=== PATIENT | male | born 1975 | race Caucasian/White ===

== ENCOUNTER 2019-05-31 12:50 | Emergency (ER) | payer BC, OTHER, SELFPAY ==
--- NOTE | 2019-05-31 13:47 | RAD ---
RIGHT FOURTH FINGER 3 VIEWS: Date: 05/31/2019 HISTORY: Crush injury. FINDINGS: Comminuted avulsion injury of the distal fourth finger with extensive soft tissue injury, as well as comminuted fracture of the distal tuft of the distal phalanx with a vertical fracture extending into the mid portion of the distal phalanx. IMPRESSION: Avulsion type soft tissue and bony injury to the distal fourth finger with some displaced small bony fragments. At least one vertical component of the fracture extends into the mid aspect of the distal phalanx. POS: [facility]
[2019-05-31] MEDS ORDERED: Lidocaine 2% PF 5 ML VIAL ONE (14:54)
[2019-05-31] MEDS ORDERED: Bupivacaine 0.5% 10 ML VIAL ONE (14:54)
[2019-05-31] MEDS ORDERED: Bacitracin 1 PK ONE (16:26)
[2019-05-31] MEDS ORDERED: CEFAZOLIN 1 GM VIAL ONE (16:39)
[2019-05-31] MEDS ORDERED: Sterile Water 10 ML ONE (16:41)
== END 2019-05-31 17:15 | disposition home or self-care (01) ==
LOC: ERS 12:50
DX: S62.634B Displaced fracture of distal phalanx of right ring finger, initial encounter for open fracture (principal); F17.220 Nicotine dependence, chewing tobacco, uncomplicated; W23.0XXA Caught, crushed, jammed, or pinched between moving objects, initial encounter
CPT/HCPCS: 64450; 96372; J0690; J2001; J3490

== ENCOUNTER 2019-06-02 14:44 | Emergency (ER) | payer BC ==
[2019-06-02] MEDS ORDERED: Ketorolac Tromethamine 60 MG/2 ML VIAL ONE (15:46)
== END 2019-06-02 16:07 | disposition home or self-care (01) ==
LOC: ERS 14:44
DX: S61.214D Laceration without foreign body of right ring finger without damage to nail, subsequent encounter (principal); F17.220 Nicotine dependence, chewing tobacco, uncomplicated
CPT/HCPCS: 96372; 99282; J1885

== ENCOUNTER 2019-06-16 11:26 | Day surgery (SDC) | payer OTHER ==
[2019-06-15 11:58] VITALS: BMI 46.5
[~2019-06-16 11:26] MED LIST: Dexamethasone 20 MG/5 ML VIAL ONE; EPHEDRINE 25 MG/5 ML SYRINGE ONE; Glycopyrrolate 0.2 MG/ML 5 ML SYRINGE ONE; Lidocaine 1% PF 5 ML VIAL ONE; Ondansetron PF 4 MG/2 ML Vial ONE; PHENYLEPHRINE-NS 100 MCG/ML 10 ML SYRINGE ONE; PROPOFOL 200 MG/20 ML VIAL ONE
[2019-06-16] MEDS ORDERED: Fentanyl 100 MCG/2 ML VIAL ONE ×4 (11:53→19:58)
[2019-06-16] MEDS ORDERED: Midazolam HCl 2 mg/2 ml Vial ONE ×2 (11:53→17:44)
[2019-06-16 12:53] LABS: #Basophils 0.1 thou/uL (0.0-0.2); #Eosinphils 0.1 thou/uL (0.0-0.7); #Lymphocytes 2.5 thou/uL (1.20-3.40); #Monocytes 0.5 thou/uL (0.11-0.59); #Neutrophils 3.7 thou/uL (1.40-6.50); %Basophils 1.1 % (0.0-1.0); %Lymphocytes 36.1 % (21.0-51.0); %Monocytes 7.5 % (0.0-10.0); %Neutrophils 53.4 % (42.0-75.0); Hemoglobin 16.2 g/dL (14.0-18.0); Mean Corpuscular HGB CONC 34.1 g/dL (32.0-36.0); Mean Corpuscular Hemoglobin 31.1 pg (27.0-31.0); Mean Corpuscular Volume 90.9 fL (78.0-98.0); Mean Platelet Volume 9.1 fL (7.4-10.4); Platelet Count 189 thou/uL (130-400); RBC Distribution Width 11.6 % (11.5-14.5); Red Blood Cell (RBC) Count 5.22 mill/uL (4.70-6.10); White Blood Cell (WBC) Count 6.9 thou/uL (4.8-10.8)
[2019-06-16] MEDS ORDERED: Bacitracin Zinc Ointment 30 gm TUBE ONE (17:06)
[2019-06-16] MEDS ORDERED: Bupivacaine 0.25% HCL 30 ML VIAL ONE (17:06)
[2019-06-16] MEDS ORDERED: Ketorolac Tromethamine 30 MG/ML VIAL ONE (19:39)
[2019-06-16] MEDS ORDERED: HYDROcodone/Acetaminophen 5/325 mg Tablet ONE (19:51)
--- NOTE | 2019-06-19 09:25 | OP ---
DATE OF PROCEDURE: 06/16/2019 PREOPERATIVE DIAGNOSES: 1. Right ring finger distal phalanx open wound with necrotic 2 x 1.0 cm distal tuft. 2. Open fracture distal phalanx, right ring finger. POSTOPERATIVE DIAGNOSES: 1. Right ring finger distal phalanx open wound with necrotic 2 x 1.0 cm distal tuft. 2. Open fracture distal phalanx, right ring finger. PROCEDURES PERFORMED: 1. Debridement of wound. 2. of bone cortex. 3. Removal of nail completely. 4. 2.5 x 1.5 cm full-thickness skin graft. SPECIMEN: Bone ossicle 3 mm with no connection to primary fracture area and part of the crushed region. TOURNIQUET TIME: 8 minutes. ESTIMATED BLOOD LOSS: 10 mL. FINDINGS: No exposed bone after debridement with excellent bleeding bed right ring finger post debridement of skin graft recipient site. DESCRIPTION OF PROCEDURE: After successful general endotracheal anesthesia, the limb was prepped and draped. The patient had the opportunity and then did complete injection of 10 mL of 0.5% Marcaine metacarpophalangeal block level, right ring finger. We then elevated the necrotic fragment using [place] blade down to an associated distal tuft fat. The tuft was inspected, it was clear it was not infectious, so we irrigated with 3 L of Pulsavac, and removed a small 3 mm bony ossicle as part of the of bone cortex. We removed the nail to evaluate the nail and did not have to do a repair. Then, once we obtained hemostasis and finished debridement, we harvested a 2.5 x 1.5 cm full-thickness skin graft from the antecubital fossa same side, closed it primarily with a running 2-0 Monocryl in combination with the fibrin glue. We then defatted this graft, with bolster sutures x4 attached it to the recipient site, circumferentially sutured this to the site to include the nail matrix with a 5-0 chromic. We placed bacitracin, Adaptic, and then a bolster using the previous sutures, a mineral oil soaked cotton ball. The patient left the operating room without evidence of anesthetic or operative complication. Job ID: [id number]
== END 2019-06-16 21:05 | disposition home or self-care (01) ==
LOC: SDC 11:26
PROVIDERS: ATTEND Orthopaedic Surgery Hand Surgery
PROC: 0HRFX73 Replacement of Right Hand Skin with Autologous Tissue Substitute, Full Thickness, External Approach (ICD-10-PCS; principal; 2019-06-16)
PROC: 0HTQXZZ Resection of Finger Nail, External Approach (ICD-10-PCS; principal; 2019-06-16)
PROC: 0PBT0ZZ Excision of Right Finger Phalanx, Open Approach (ICD-10-PCS; principal; 2019-06-16)
DX: S62.634B Displaced fracture of distal phalanx of right ring finger, initial encounter for open fracture (principal); I96 Gangrene, not elsewhere classified; L02.511 Cutaneous abscess of right hand; F17.200 Nicotine dependence, unspecified, uncomplicated; Z88.5 Allergy status to narcotic agent; W23.0XXA Caught, crushed, jammed, or pinched between moving objects, initial encounter; Y92.513 Shop (commercial) as the place of occurrence of the external cause; Y99.0 Civilian activity done for income or pay
CPT/HCPCS: 85025; 88305; J0690; J1100; J1885; J2001; J2250; J2405; J2704; J3010; J3490; S0020